=== PATIENT | male | born 1960 | race Caucasian/White ===

== ENCOUNTER 2017-11-04 18:15 | Emergency (ER) | payer BC, OTHER ==
[~2017-11-04] VITALS: Ht 172.7 cm; Wt 86.0 kg
[~2017-11-04 18:15] MED LIST: PRAV40TA2 PO; TYLOTC500 PO
[2017-11-04 18:18] VITALS: TEMP 36.4; Ht 172.7 cm; Wt 86.0 kg
[2017-11-04] MEDS ORDERED: SODIUM CHLORIDE 0.9% 1000ML 1,000 ML IV STA (18:28)
[2017-11-04] MEDS ORDERED: ONDANSETRON INJ 2 MG/ML 2 ML VIAL IV STA (18:28)
[2017-11-04] MEDS ORDERED: FAMOTIDINE 20 MG TAB PO ONE (18:30)
--- NOTE | 2017-11-04 18:45 | EMERGENCY ROOM VISIT NOTE ---
History Report prepared by Hemal: Art Wheatley Under the Supervision of: Dr. Brandon Castano M.D. First contact with patient: 18:25 Chief Complaint: RIB PAIN Stated Complaint: PAIN UNDER RT RIB CAGE,BACK PAIN,VOMITING History of Present Illness The patient is a 57 year old male who presents to the Emergency Room with complaints of constant right rib pain that began at 1030. He rates his pain as a 7/10 in severity. The patient states that he woke up not feeling well this morning. He reports that shortly after he developed right sided rib pain that later radiated into his right back. He reports that he has also been short of breath today. The patient states he became nauseous today and retched twice today. The patient is accompanied by his who states that the patient took an Oxycodone at 1000 but vomited right after. She reports that he also took an Aspirin later today. He denies similar previous symptoms, fevers, chills, cough , congestion, diarrhea, urinary symptoms, a history of reflux, hematuria, eating something new, a history of a cholecystectomy, a history of blood clots, a history of cancer, and a history of heart problems. Source of History: patient Onset: 1030 Position: other (right rib) Symptom Intensity: 7/10 Timing: constant Modifying Factors (Relieving): other (Aspirin, Oxycontin) Associated Symptoms: + nausea, + vomiting, + back pain, No fevers, No chills , No cough, No urinary symptoms Review of Systems See HPI for pertinent positives and negatives. A total of ten systems were reviewed and were otherwise negative. Past Medical & Surgical Medical Problems: (1) Inguinal hernia Surgical Problems: (1) History of laparoscopy Family History Patient reports no known family medical history. Social History Smoking Status: Current Every Day Smoker Marital Status: Housing Status: lives with significant other Occupation Status: employed Current/Historical Medications Scheduled Docusate Sodium (Colace), 1 CAP PO BID Ondasetron Odt (Zofran Odt), 4 MG SL Q6H Pravastatin Sodium (Pravastatin Sodium), 40 MG PO QAM Allergies Coded Allergies: No Known Allergies (Unverified , 12/25/14) Physical Exam Vital Signs Date Time Temp Pulse Resp B/P (MAP) Pulse Ox O2 Delivery O2 Flow Rate FiO2 11/04/17 22:09 94 18 180/125 94 11/04/17 21:10 78 204/115 93 Room Air 11/04/17 20:25 82 11/04/17 19:07 96 Room Air 11/04/17 18:18 36.4 99 18 200/127 96 Physical Exam GENERAL: Awake, alert, fatigued, uncomfortable appearing, in no distress HENT: Normocephalic, atraumatic. Dry mucous membranes. Oropharynx otherwise unremarkable. EYES: Normal conjunctiva. Sclera non-icteric. NECK: Supple. No nuchal rigidity. FROM. No JVD. RESPIRATORY: Clear to auscultation. CARDIAC: Regular rate, normal rhythm. Extremities warm and well perfused. Pulses equal. ABDOMEN: Soft, non-distended. Mild right upper quadrant and epigastric discomfort. No discrete tenderness. Negative Gabriel's sign. No rebound or guarding. No masses. RECTAL: Deferred. MUSCULOSKELETAL: Chest examination reveals no tenderness. The back is symmetrical on inspection without obvious abnormality. There is no CVA tenderness to palpation. No joint edema. LOWER EXTREMITIES: Calves are equal size bilaterally and non-tender. No edema. No discoloration. NEURO: Normal sensorium. No sensory or motor deficits noted. SKIN: No rash or jaundice noted. Medical Decision & Procedures ER Provider Diagnostic Interpretation: X-ray: Per my interpretation, radiologist review. CHEST ONE VIEW PORTABLE CLINICAL HISTORY: 57 years-old Male presenting with CHEST PAIN. TECHNIQUE: Portable upright AP view of the chest was obtained. COMPARISON: 12/25/2014. FINDINGS: Atherosclerosis of aortic arch. Cardiac silhouette enlarged. Lungs and pleural spaces clear. Osseous structures normal. Upper abdomen normal. IMPRESSION: 1. No acute cardiopulmonary disease. Electronically signed by: Marcos Bueno M.D. 11/04/2017 6:58 PM Dictated Date/Time: 11/04/2017 6:56 PM Laboratory Results 11/04/17 18:50 Red Blood Count 5.16, Mean Corpuscular Volume 90.3, Mean Corpuscular Hemoglobin 32.2, Mean Corpuscular Hemoglobin Concent 35.6, Mean Platelet Volume 9.1, Neutrophils (%) (Auto) 85.5, Lymphocytes (%) (Auto) 10.1, Monocytes (%) (Auto) 4.0, Eosinophils (%) (Auto) 0.0, Basophils (%) (Auto) 0.1, Neutrophils # (Auto) 11.57, Lymphocytes # (Auto) 1.37, Monocytes # (Auto) 0.54, Eosinophils # (Auto) 0.00, Basophils # (Auto) 0.02 11/04/17 18:50 Test 11/04/17 18:50 White Blood Count 13.54 K/uL (4.8-10.8) Red Blood Count 5.16 M/uL (4.7-6.1) Hemoglobin 16.6 g/dL (14.0-18.0) Hematocrit 46.6 % (42-52) Mean Corpuscular Volume 90.3 fL (80-100) Mean Corpuscular Hemoglobin 32.2 pg (25-34) Mean Corpuscular Hemoglobin Concent 35.6 g/dl (32-36) Platelet Count 271 K/uL (130-400) Mean Platelet Volume 9.1 fL (7.4-10.4) Neutrophils (%) (Auto) 85.5 % Lymphocytes (%) (Auto) 10.1 % Monocytes (%) (Auto) 4.0 % Eosinophils (%) (Auto) 0.0 % Basophils (%) (Auto) 0.1 % Neutrophils # (Auto) 11.57 K/uL (1.4-6.5) Lymphocytes # (Auto) 1.37 K/uL (1.2-3.4) Monocytes # (Auto) 0.54 K/uL (0.11-0.59) Eosinophils # (Auto) 0.00 K/uL (0-0.5) Basophils # (Auto) 0.02 K/uL (0-0.2) RDW Standard Deviation 42.7 fL (36.4-46.3) RDW Coefficient of Variation 12.9 % (11.5-14.5) Immature Granulocyte % (Auto) 0.3 % Immature Granulocyte # (Auto) 0.04 K/uL (0.00-0.02) Anion Gap 9.0 mmol/L (3-11) Est Creatinine Clear Calc Drug Dose 77.9 ml/min Estimated GFR () 85.7 Estimated GFR (Non- 73.9 BUN/Creatinine Ratio 8.9 (10-20) Calcium Level 8.5 mg/dl (8.5-10.1) Total Bilirubin 0.3 mg/dl (0.2-1) Direct Bilirubin < 0.1 mg/dl (0-0.2) Aspartate Amino Transf (AST/SGOT) 18 U/L (15-37) Alanine Aminotransferase (ALT/SGPT) 33 U/L (12-78) Alkaline Phosphatase 119 U/L (45-117) Troponin I < 0.015 ng/ml (0-0.045) Total Protein 7.7 gm/dl (6.4-8.2) Albumin 4.1 gm/dl (3.4-5.0) Lipase 110 U/L (73-393) Laboratory results reviewed by me Medications Administered Medications (Trade) Dose Ordered Sig/Pradeep Route Start Time Stop Time Status Last Admin Dose Admin Sodium Chloride 1,000 ml @ 999 mls/hr Q1H1M STAT IV 11/04/17 18:28 11/04/17 19:28 DC 11/04/17 18:28 999 MLS/HR Ondansetron HCl (Zofran Inj) 4 mg NOW STAT IV 11/04/17 18:28 11/04/17 18:34 DC 11/04/17 18:28 4 MG Famotidine (Pepcid Tab) 20 mg NOW ONCE PO 11/04/17 18:30 11/04/17 18:34 DC 11/04/17 18:30 20 MG Metoclopramide HCl (Reglan Inj) 10 mg NOW STAT IV 11/04/17 20:26 11/04/17 20:27 DC 11/04/17 20:45 10 MG Magnesium Citrate (Citrate Of Magnesia Soln) 296 ml NOW STAT PO 11/04/17 20:26 11/04/17 20:27 DC 11/04/17 20:44 296 ML Docusate Sodium (coLACE CAP) 100 mg NOW ONCE PO 11/04/17 22:00 11/04/17 22:01 DC 11/04/17 22:08 100 MG ECG Per My Interpretation Indication: chest pain Rate (beats per minute): 80 Rhythm: normal sinus Findings: no acute ischemic change, other (Normal axis) ED Course 1827: The patient was evaluated in room C08. A complete history and physical exam was performed. 1906: I performed an ultrasound and an echo. No gallstones. No RV strain. No hydro on his kidney. 2103: I reevaluated the patient. Discussed results and discharge instructions: He verbalized understanding and agreement. The patient is ready for discharge. Medical Decision I reviewed the patient's past medical history, medications, and the nursing notes as described above. The patient's presentation and history were concerning for etiologies such as appendicitis, diverticulitis, PUD, biliary pathology, UTI, pancreatitis, obstruction, mesenteric ischemia, aortic pathology, infections, inflammatory bowel disease, renal colic, as well as others were entertained. The patient is a 57-year-old gentleman who presents emergency department with right upper quadrant abdominal pain per hpi. On exam, the patient is uncomfortable but no acute distress, afebrile stable vital signs. On exam the patient has mild right upper quadrant and epigastric discomfort but no discrete tenderness. Negative Gabriel sign. Bedside ultrasound demonstrates no gallstones or pericholecystic fluid. WBC 13, nonspecific. Chest x-ray negative. EKG unremarkable. Troponin negative. KUB demonstrates moderate stool burden in the right colon. Findings were discussed with the patient was given options for CT to r/o obstruction (although unlikley given no risk factors for obstruction such as surgery or cancer history) and bowel cleanse in emergency department versus discharge to take mag citrate and perform home enema. Patient preferred to go home try and treat his constipation and if worse will return. Given strict return instructions. Findings and plan for follow-up reviewed with patient. Patient agreeable and d/c'd per discharge instructions. Medication Reconcilliation Current Medication List: was personally reviewed by me Blood Pressure Screening Patient's blood pressure: Elevated blood pressure Blood pressure disposition: Referred to PCP Impression Primary Impression: Constipation Scribe Attestation The scribe's documentation has been prepared under my direction and personally reviewed by me in its entirety. I confirm that the note above accurately reflects all work, treatment, procedures, and medical decision making performed by me. Departure Information Dispostion Home / Self-Care Prescriptions Ondasetron Odt (ZOFRAN ODT) 4 Mg Tab 4 MG SL Q6H for Nausea, #10 TAB Prov: Brandon Castano M.D. 11/04/17 Docusate Sodium (COLACE) 100 Mg Cap 1 CAP PO BID for 15 Days, #30 CAP Prov: Brandon Castano M.D. 11/04/17 Referrals Tierra Shepard M.D. (PCP) Patient Instructions ED Constipation, My [facility] Additional Instructions Please follow up with your primary care physician in the next 1-3 days for re- evaluation. Your symptoms are most likely due to constipation. Otherwise, your exam, EKG, xrays, and lab results did not show signs of an emergent condition at this time. Colace as directed for stool softening. Magnesium citrate and [id number] enema to help move your bowels. Zofran as needed for nausea. Drink plenty of fluids to ensure hydration. Return to the emergency department for worsening symptoms as described in the accompanying instructions.
--- NOTE | 2017-11-04 18:59 | DIAGNOSTIC IMAGING REPORT ---
CHEST ONE VIEW PORTABLE CLINICAL HISTORY: 57 years-old Male presenting with CHEST PAIN. TECHNIQUE: Portable upright AP view of the chest was obtained. COMPARISON: 12/25/2014. FINDINGS: Atherosclerosis of aortic arch. Cardiac silhouette enlarged. Lungs and pleural spaces clear. Osseous structures normal. Upper abdomen normal. IMPRESSION: 1. No acute cardiopulmonary disease. Electronically signed by: Marcos Bueno M.D. 11/04/2017 6:58 PM Dictated Date/Time: 11/04/2017 6:56 PM
[2017-11-04 19:05] LABS: BASO % 0.1 %; BASO ABS # 0.02 K/uL (0-0.2); HEMATOCRIT 46.6 % (42-52); HEMOGLOBIN 16.6 g/dL (14.0-18.0); IG# 0.04 K/uL (0.00-0.02); LYMPH % 10.1 %; LYMPH ABS # 1.37 K/uL (1.2-3.4); MEAN CELL VOLUME 90.3 fL (80-100); MEAN CORPUSCULAR HEMOGLOBIN 32.2 pg (25-34); MEAN CORPUSCULAR HGB CONC 35.6 g/dl (32-36); MEAN PLATELET VOLUME 9.1 fL (7.4-10.4); MONO ABS # 0.54 K/uL (0.11-0.59); NEUT % 85.5 %; NEUT ABS # 11.57 K/uL (1.4-6.5); PLATELET COUNT 271 K/uL (130-400); RED CELL DISTRIBUTION WIDTH CV 12.9 % (11.5-14.5); RED CELL DISTRIBUTION WIDTH SD 42.7 fL (36.4-46.3); WHITE BLOOD COUNT 13.54 K/uL (4.8-10.8)
[2017-11-04 19:07] VITALS: O2SAT 96
[2017-11-04 19:22] LABS: ALBUMIN 4.1 gm/dl (3.4-5.0); ALT/SGPT 33 U/L (12-78); BLOOD UREA NITROGEN 10 mg/dl (7-18); CALCIUM 8.5 mg/dl (8.5-10.1); CARBON DIOXIDE 22 mmol/L (21-32); CREATININE 1.09 mg/dl (0.60-1.40); GLUCOSE 138 mg/dl (70-99); LIPASE 110 U/L (73-393); POTASSIUM 3.8 mmol/L (3.5-5.1); SODIUM 136 mmol/L (136-145)
[2017-11-04 19:27] LABS: ALKALINE PHOSPHATASE 119 U/L (45-117); AST/SGOT 18 U/L (15-37); TOTAL PROTEIN 7.7 gm/dl (6.4-8.2)
--- NOTE | 2017-11-04 20:24 | DIAGNOSTIC IMAGING REPORT ---
KUB CLINICAL HISTORY: 57 years-old Male presenting with upper abd pain, constipation. TECHNIQUE: Single supine view of the abdomen was obtained. COMPARISON: None. FINDINGS: Moderate stool burden primarily in the right colon. No bowel obstruction. No gross pneumoperitoneum allowing for supine technique. Allowing for bowel gas and stool, no calcifications to suggest nephrolithiasis. Multiple pelvic phleboliths noted. Osseous structures normal. Lung bases clear. IMPRESSION: 1. Moderate stool burden in the right colon, which could suggest constipation. No bowel obstruction. Electronically signed by: Marcos Bueno M.D. 11/04/2017 8:22 PM Dictated Date/Time: 11/04/2017 8:21 PM
[2017-11-04] MEDS ORDERED: METOCLOPRAMIDE HCL INJ 5 MG/ML 2 ML VIAL IV STA (20:26)
[2017-11-04] MEDS ORDERED: MAGNESIUM CITRATE 296 ML/BTL PO STA (20:26)
[2017-11-04] MEDS ORDERED: ONDA4TAB10 SL (21:48)
[2017-11-04] MEDS ORDERED: DOCU-94 PO (21:48)
[2017-11-04] MEDS ORDERED: DOCUSATE SODIUM 100 MG CAP PO ONE (22:00)
[2017-11-04 22:09] VITALS: BP 180/125; PULSE 94; O2SAT 94
== END 2017-11-04 22:11 | disposition home or self-care (01) ==
LOC: C.EDB 18:17 → C.EDC 22:11
DX: K59.00 Constipation, unspecified (principal); F17.200 Nicotine dependence, unspecified, uncomplicated